=== PATIENT | male | born 1995 | race Caucasian/White ===

== ENCOUNTER 2019-08-19 17:13 | Emergency (ER) | payer OTHER ==
[~2019-08-19] VITALS: Ht 170.2 cm; Wt 53.2 kg
[2019-08-19] MEDS ORDERED: ACYCLOVIR 200 MG CAPSULE PO ONE (21:15)
[2019-08-19] MEDS ORDERED: PredniSONE 20 MG TABLET PO ONE (21:15)
[2019-08-19] MEDS ORDERED: LIDOCAINE 5% TRANSDERMAL PATCH TD ONE (21:15)
[2019-08-19] MEDS ORDERED: HYDROCODONE/ACETAMINOPHEN 5-325 MG TABLET PO ONE (21:15)
[2019-08-19] MEDS ORDERED: IBUPROFEN 600 MG TABLET PO ONE (21:30)
[2019-08-19 21:50] VITALS: BP 108/71
== END 2019-08-19 21:57 | disposition home or self-care (01) ==
LOC: EMS 17:13
DX: J06.9 Acute upper respiratory infection, unspecified (principal); B02.9 Zoster without complications
CPT/HCPCS: 99284; J7512